=== PATIENT | male | born 1985 | race Caucasian/White ===

== ENCOUNTER 2019-07-26 09:25 | Emergency (ER) | payer SELFPAY ==
[2019-07-26] MEDS ORDERED: FENTANYL CITRATE INJ/PF 100 MCG/2 ML AMPUL IV ONE (09:37)
[2019-07-26] MEDS ORDERED: KETOROLAC TROMETHAMINE INJ/PF 30 MG/1 ML SDV IV ONE (09:38)
[2019-07-26] MEDS ORDERED: LIDOCAINE 2% JELLY 5 ML TUBE TOP ONE (09:48)
--- NOTE | 2019-07-26 09:50 | ER Document Report ---
HPI - HPI Patient complains to provider of: Skin reaction Time Seen by Provider: 07/26/19 09:28 Onset: Just prior to arrival Onset/Duration: Sudden Quality of pain: Burning Pain Level: 5 Context: Patient states that he had been exposed to someone with scabies and he attempted to treat any potential exposure by prophylactically applying capsacin to his chest. Patient states he immediately started to have burning. Patient states that he has washed his skin in the shower and the cream washed off although now he has burning to his chest arms and genitalia. Associated Symptoms: denies: Nonproductive cough, Productive cough, Headache, Vomiting Exacerbated by: Denies Relieved by: Denies Similar symptoms previously: No Recently seen / treated by doctor: No - ROS ROS below otherwise negative: Yes Systems Reviewed and Negative: Yes All other systems reviewed and negative - CONSTITUTIONAL Constitutional: DENIES: Fever, Chills - NEURO Neurology: DENIES: Weakness - RESPIRATORY Respiratory: DENIES: Coughing - GASTROINTESTINAL Gastrointestinal: DENIES: Nausea, Patient vomiting - DERM Skin Color: Erythema - Erythema to anterior chest wall and abdomen Past Medical History - General Information source: Patient - Social History Smoking Status: Never Smoker Frequency of alcohol use: None Drug Abuse: Marijuana Occupation: 53 Give Lives with: Spouse/Significant other Family History: Reviewed & Not Pertinent Patient has homicidal ideation: No - Medical History Medical History: Negative Surgical Hx: Negative Vertical Provider Document - CONSTITUTIONAL Agree With Documented VS: Yes Exam Limitations: No Limitations General Appearance: WD/WN, No Apparent Distress - HEENT HEENT: Atraumatic, Normocephalic - NECK Neck: Normal Inspection, Supple. negative: Lymphadenopathy-Left, Lymphadenopathy-Right - RESPIRATORY Respiratory: Breath Sounds Normal, No Respiratory Distress - CARDIOVASCULAR Cardiovascular: Regular Rate, Regular Rhythm, No Murmur - GI/ABDOMEN Gastrointestinal: Abdomen Soft - REPRODUCTIVE Male Genitalia: Normal Inspection - MUSCULOSKELETAL/EXTREMETIES Musculoskeletal/Extremeties: MAEW - NEURO Level of Consciousness: Awake, Alert - Anxious Motor/Sensory: No Motor Deficit - DERM Integumentary: Warm, Dry, Rash - Macular erythematous coloration to anterior chest and abdomen, no blistering or vesicles noted Course - Re-evaluation Re-evalutation: 07/26/19 09:49 Consulted with poison control regarding patient presentation. Recommend application of cool water for irrigation of the area. States that vinegar water can be used to help with discomfort. Recommends possible topical application of lidocaine prilocaine but states that primarily it is just going to require passage of time for improvement of symptoms. 07/26/19 10:26 Patient reports feeling much better at this time. Patient with decreased erythema to the chest. Patient feels he can manage his symptoms at home. Good return precautions discussed. Patient encouraged to avoid use of capsaicin in the future. 07/26/19 Offered to give patient prescription for Elimite, patient declines at this time. Patient states that he does not think that he has scabies he does think he has insect bites and will use [id number] steroid cream. - Vital Signs Vital signs: Temp Pulse Resp BP Pulse Ox 97.8 F 82 20 166/87 H 97 07/26/19 09:32 07/26/19 09:32 07/26/19 09:32 07/26/19 09:32 07/26/19 09:32 Discharge - Discharge Clinical Impression: Medication side effects, Burning sensation of skin Condition: Stable Disposition: HOME, SELF-CARE Additional Instructions: Return immediately for any new or worsening symptoms Followup with your primary care provider, call tomorrow to make a followup appointment Avoid use of capsacin in the future You may apply cool rinses to the skin to help with discomfort. You may apply vinegar water to the skin to help with discomfort as well Referrals: [facility] [Provider Group] - Follow up as needed
[2019-07-26 10:40] VITALS: BP 132/81
== END 2019-07-26 10:40 | disposition home or self-care (01) ==
LOC: ER 09:25
DX: L25.1 Unspecified contact dermatitis due to drugs in contact with skin (principal); R20.8 Other disturbances of skin sensation; T49.4X5A Adverse effect of keratolytics, keratoplastics, and other hair treatment drugs and preparations, initial encounter; Z20.7 Contact with and (suspected) exposure to pediculosis, acariasis and other infestations; F12.10 Cannabis abuse, uncomplicated
CPT/HCPCS: 99283; 96365; J3010; J1885

== ENCOUNTER → 2020-03-07 | Outpatient (CLI) | payer MEDICAID ==
--- NOTE | 2020-03-07 14:37 | RADIOLOGY REPORT (SQ) ---
EXAM DESCRIPTION: L SPINE WHOLE IMAGES COMPLETED DATE/TIME: 03/07/2020 1:36 pm REASON FOR STUDY: BACK PAIN M54.5 LOW BACK PAIN COMPARISON: None. NUMBER OF VIEWS: Five views including obliques. TECHNIQUE: AP, lateral, oblique, and sacral radiographic images acquired of the lumbar spine. LIMITATIONS: None. FINDINGS: MINERALIZATION: Normal. SEGMENTATION: Normal. No transitional anatomy. ALIGNMENT: Normal. VERTEBRAE: Maintained height. No fracture or worrisome bone lesion. DISCS: Preserved height. No significant osteophytes or end plate irregularity. POSTERIOR ELEMENTS: Pedicles and facets are intact. No pars defect or posterior arch defects. HARDWARE: None in the spine. PARASPINAL SOFT TISSUES: Normal. PELVIS: Intact as visualized. No fractures or worrisome bone lesions. SI joints intact. OTHER: No other significant finding. IMPRESSION: 1. No acute osseous findings. TECHNICAL DOCUMENTATION: JOB ID: [id number] 2010 [employer]- All Rights Reserved Reading location - IP/workstation name: [email or web address]
== END ==
LOC: RAD 13:07
PROVIDERS: ATTEND Nurse Practitioner Family
DX: M54.5 Low back pain (principal)
CPT/HCPCS: 72110